=== PATIENT | female | born 1965 | race Asian ===

== ENCOUNTER 2023-10-09 13:23 | Emergency (ER) | payer OTHER, SELFPAY ==
[2023-10-09 13:32] VITALS: BP 140/96; BMI 28.3
[2023-10-09 13:46] LABS: % Basophils 0.4 % (0-2); % Eosinophils 2.4 % (0-6); % Immature Granulocytes 0.7 % (0-0.5); % Lymphocytes 20.7 % (20.5-51.1); % Monocytes 5.5 % (1.7-9.3); % Neutrophils 70.3 % (42.2-75.2); Absolute Eosinophils 0.2 10^3/uL (0-0.7); Absolute Immature Granulocytes 0.1 10^3/uL (0-0.05); Absolute Lymphocytes 1.7 10^3/uL (1.2-3.4); Absolute Monocytes 0.4 10^3/uL (0.1-0.6); Absolute Neutrophils 5.6 10^3/uL (1.4-6.5); Hematocrit 39.3 % (37.0-47.0); Mean Corp Hgb Conc. 35.6 g/dL (33.0-37.0); Mean Corpuscular Hgb 31.4 pg (27.0-31.0); Mean Corpuscular Volume 88.1 fL (81.0-99.0); Mean Platelet Volume 9.4 fL (7.4-10.4); Nucleated Red Blood Cells % 0 %; Platelet Count 251 10^3/uL (130-400); Red Blood Cell Count 4.46 10^6/uL (4.20-5.40); Red Cell Dist. Width 11.2 % (11.5-14.5)
[2023-10-09 14:08] LABS: ALT (SGPT) 25 U/L (0-35); AST (SGOT) 28 U/L (14-36); Albumin 4.5 g/dl (3.5-5.0); Alkaline Phosphatase 107 U/L (38-126); Blood Urea Nitrogen 10 mg/dl (7-17); Calcium 9.6 mg/dl (8.4-10.2); Carbon Dioxide 27 mmol/L (22-30); Chloride 106 mmol/L (98-107); Estimated Creatinine Clearance 82 ml/min; Glucose 89 mg/dl (70-99); Lipase 204 U/L (23-300); Potassium 4.1 mmol/L (3.5-5.1); Sodium 138 mmol/L (135-145); Total Bilirubin 0.6 mg/dl (0.2-1.3); Total Protein 7.9 g/dl (6.3-8.2); eGFR > 60.00
--- NOTE | 2023-10-09 16:21 | ED.GENMED ---
History of Present Illness
General
Chief Complaint: Abdominal Pain
Source: patient
Time Seen by Provider: 10/09/23 15:49
Travel History
Have you had any contact with someone who has COVID-19?: No
Do you have any symptoms of coronavirus? Fever > 100 degrees, chills, cough, shortness of breath, sore throat, loss of taste or smell, muscle aches, or headache?: No
History of Present Illness
History of Present Illness:
58-year-old female with past medical history of asthma presenting the emergency department for evaluation of left lower quadrant abdominal pain with gradual onset that started yesterday, slightly worse today but without any other associated symptoms
that prompted her to come to the ER for further evaluation. Patient did not take anything for pain prior to arrival. She denies any history of similar. She denies any fevers, chills, rigors, nausea, vomiting, bowel changes, urinary
frequency/urgency/dysuria/hematuria. Pain is described to be constant, intermittently will be felt within the flank area but also within the upper part of her abdomen, unable to describe the quality of the pain. Surgical history was noted for
as well as abdominoplasty and hysterectomy.
Past History
Past History
ED Past Medical History: Asthma
ED Past Surgical History: and Gynecological
Social History
Tobacco: Non-smoker
Alcohol: None
Drug: None
Personal:
Living: with family
Review of Systems
Review of Systems
All Other Systems: ROS reviewed and negative except as documented in HPI and ROS
Phy Exam
Physical Exam
Physical Exam:
GENERAL: Alert , in no apparent distress at rest
EYE: clear conjunctiva b/l
HEAD: NCAT
ENT: o/p clr, mmm.
CARDIAC: Regular rate and rhythm .
LUNGS: Clear breath sounds bilaterally, no acute respiratory distress, no wheezes/rales/rhonchi
ABDOMEN: Soft, moderate tenderness within the left lower quadrant on palpation with grimacing, no r/g, no cvat
NEUROLOGICAL: Alert and oriented
SKIN: Warm and dry, skin intact.
MUSCULOSKELETAL: No edema, well perfused.
PSYCH: Normal and appropriate interaction.
Scores
Heart Failure Risk
Heart Failure Risk Score: Not Applicable
Heart Score for Chest Pain Patients
STEMI patient?: Not applicable
Withdrawal Assessment of Alcohol
Withdrawal Assessment Completed?: Not applicable
Course
Orders/Labs/Results
Orders:
Orders
10/09/23 13:39
Complete Blood Count/With Diff Urgent
Comprehensive Metabolic Panel Urgent
Lipase Urgent
10/09/23 16:04
Ketorolac [Toradol] 30 mg IV NOW STA
10/09/23 16:05
CT Abd/Pel (IV only)-DH only Urgent
Comment:
Reason For Exam: left sided and upper abd pain
10/09/23 16:20
Urinalysis Reflex To Culture Urgent
Date Specimen was Collected: 10/09/23
Time Specimen was Collected: 16:19
Abnormal Lab Results
10/09/23
13:39
MCH 31.4 H pg
(27.0-31.0)
RDW 11.2 L %
(11.5-14.5)
Abs Immat Gran (auto) 0.1 H 10^3/uL
(0-0.05)
Immature Gran % 0.7 H %
(0-0.5)
10/09/23 13:39
10/09/23 13:39
Vital Signs
Initial and Last Documented VS:
Initial Vital Signs
Temp Pulse Resp BP Pulse Ox
98.4 F 95 16 140/96 99
10/09/23 13:32 10/09/23 13:32 10/09/23 13:32 10/09/23 13:32 10/09/23 13:32
Last Documented Vital Signs
Temp Pulse Resp BP Pulse Ox
98.4 F 72 16 119/67 99
10/09/23 13:32 10/09/23 18:05 10/09/23 13:32 10/09/23 18:05 10/09/23 13:32
MDM/Problems Addressed
Differential Diagnosis Includes:
Diverticulitis, renal/ureteral colic, atypical appendicitis presentation, no concern for cholecystitis
MDM/Problems Addressed:
58-year-old female presenting the emergency department for evaluation of left lower quadrant pain x 1 day without any other associated symptoms. On exam patient's pain is pretty moderate on the left lower quadrant with grimacing on palpation. Lab
work was initiated in triage and is overall reassuring. Will check a CT of the abdomen pelvis as I suspect diverticulitis to be most likely diagnosis. Patient is amenable to some Toradol for pain control. Reassessment following.
*Radiology
Radiology exam reviewed: radiology read reviewed
*Pulse Oximetry
Patient hypoxic: no
*Critical Care Note
Total Time (30-74mins, 75-104mins- exclusive of procedures): Not Applicable
Patient Management
Escalation/DeEscalation of care consider admission/obs:
Patient CT scan is without any acute intra-abdominal pathology is noted. There is increased stool noted on CT which could certainly be the cause of patient's pain. She is afebrile, no leukocytosis and has otherwise reassuring labs and urine. Will
send a prescription for MiraLAX to patient's pharmacy. Advise she increase her water intake as well as fiber intake. Aware of return precautions to the ER but otherwise stable for discharge home.
ED Attending Note
-
Portions of this chart may have been created with voice recognition software.� Occasional wrong word or��sound alike� substitutions may have occurred due to the inherent limitations of voice recognition software.
Discharge Plan
Departure
Patient Disposition: Home (Routine Discharge)
Date of Disposition: 10/09/23
Time of Disposition: 18:38
Patient with high blood pressure during this ER visit?: No
Discharge Problem:
Abdominal pain, Constipation
Instructions: Abdominal Pain
Prescriptions:
New
polyethylene glycol 3350 [Miralax] 17 gram powder in packet
17 g PO DAILY PRN (Reason: Constipation) Qty: 14 0RF
Referrals:
Kiko Chaudhari DO [Family Provider] -
Interventions
Interventions:
*Risk Screen - Suicide Last Done: 10/09/23 13:32
*General Assessment Last Done: 10/09/23 16:28
*Neglect/Abuse Screening Last Done: 10/09/23 13:32
ED- Fall Risk Assessment Last Done: 10/09/23 16:30
*ED COVID-19 Vaccine History Last Done: 10/09/23 13:32
[facility]-Rzoggp-Jfdrdxyopn Assessment Last Done: 10/09/23 16:29
[2023-10-09] MEDS: TORADOL 30 MG IV (16:23)
[2023-10-09 16:29] LABS: Urine Albumin Negative (Neg - Trace); Urine Bilirubin Negative (Negative); Urine Character Clear (Clear); Urine Color Yellow; Urine Glucose Negative (Negative); Urine Ketone Negative (Negative); Urine Leukocyte Negative (Negative); Urine Nitrite Negative (Negative); Urine Occult Blood Negative (Negative); Urine Urobilinogen Negative (Neg - 1+)
[2023-10-09 18:05] VITALS: BP 119/67
== END 2023-10-09 18:55 | disposition home or self-care (01) ==
LOC: EMR 13:23
PROVIDERS: Emergency Medicine; Physician Assistant Medical; EMERGENCY PHYSICIAN Emergency Medicine; FAMILY PHYSICIAN Family Medicine
DX: R10.32 Left lower quadrant pain (principal); K59.00 Constipation, unspecified; J45.909 Unspecified asthma, uncomplicated
CPT/HCPCS: 99284; 74177; 80053; 81003; 83690; 85025; Q9967

== ENCOUNTER → 2023-11-16 16:44 | Outpatient (REF) | payer OTHER, SELFPAY | LOC: RAD 16:44 | PROVIDERS: ATTENDING PHYSICIAN Family Medicine | DX: R07.89 Other chest pain (principal) | CPT/HCPCS: 71046 ==

== ENCOUNTER → 2024-04-06 15:53 | Outpatient (REF) | payer OTHER, SELFPAY | LOC: WDC 15:53 | PROVIDERS: ATTENDING PHYSICIAN Family Medicine | DX: Z12.31 Encounter for screening mammogram for malignant neoplasm of breast (principal) | CPT/HCPCS: 77063; 77067 ==

== ENCOUNTER → 2024-12-05 16:39 | Outpatient (REF) | payer OTHER, SELFPAY | LOC: RAD 16:39 | PROVIDERS: ATTENDING PHYSICIAN Family Medicine | DX: R07.9 Chest pain, unspecified (principal) | CPT/HCPCS: 71046 ==